=== PATIENT | female | born 1955 | race Caucasian/White ===

== ENCOUNTER 2016-07-26 16:29 | Outpatient (CLI) | payer OTHER ==
--- NOTE | 2016-07-26 17:23 | DIAGNOSTIC IMAGING REPORT ---
PROCEDURE: XR OSCALCIS - RIGHT INDICATION: PAIN TECHNIQUE: Two views. COMPARISON: None. FINDINGS: Osseous structures and joint spaces are normal. IMPRESSION: 1. Normal right calcaneus
--- NOTE | 2016-07-26 17:23 | DIAGNOSTIC IMAGING REPORT ---
PROCEDURE: XR OSCALCIS - RIGHT INDICATION: PAIN TECHNIQUE: Two views. COMPARISON: None. FINDINGS: Osseous structures and joint spaces are normal. IMPRESSION: 1. Normal right calcaneus
== END 2016-07-26 23:00 ==
LOC: XR SRH 16:29
DX: M79.671 Pain in right foot (principal)